=== PATIENT | male | born 1990 | race Caucasian/White ===

== ENCOUNTER 2019-02-18 22:36 | Emergency (ER) | payer OTHER ==
[~2019-02-18] VITALS: Ht 167.6 cm; Wt 90.7 kg
[2019-02-18] MEDS ORDERED: NABUMETONE500 MG PO (23:17)
== END 2019-02-18 23:35 | disposition home or self-care (01) ==
LOC: ER 22:36
DX: M94.0 Chondrocostal junction syndrome [Tietze] (principal)

== ENCOUNTER 2020-03-09 00:44 | Emergency (ER) | payer OTHER ==
[~2020-03-09] VITALS: Ht 167.6 cm; Wt 86.2 kg
[~2020-03-09 00:44] MED LIST: NABUMETONE500 MG PO
[2020-03-09] MEDS ORDERED: KETO10TA2 PO (05:08)
[2020-03-09] MEDS ORDERED: INTESTINEX680 M1 PO (05:08)
[2020-03-09] MEDS ORDERED: DICY20TA PO (05:08)
== END 2020-03-09 05:14 | disposition home or self-care (01) ==
LOC: ER 00:44
DX: K58.9 Irritable bowel syndrome, unspecified (principal); R10.32 Left lower quadrant pain

== ENCOUNTER 2020-05-26 00:40 | Emergency (ER) | payer OTHER ==
[~2020-05-26] VITALS: Ht 167.6 cm; Wt 86.2 kg
[~2020-05-26 00:40] MED LIST changes: +DICY20TA PO; +INTESTINEX680 M1 PO; +KETO10TA2 PO
[2020-05-26] MEDS ORDERED: PANADOL (00:58)
[2020-05-26] MEDS ORDERED: KETO10TA2 PO (02:49)
== END 2020-05-26 02:52 | disposition home or self-care (01) ==
LOC: ER 00:40
DX: R07.89 Other chest pain (principal)

== ENCOUNTER 2020-09-19 13:04 | Emergency (ER) | payer OTHER ==
[~2020-09-19] VITALS: Ht 167.6 cm; Wt 88.5 kg
[~2020-09-19 13:04] MED LIST changes: +PANADOL
== END 2020-09-19 18:23 | disposition home or self-care (01) ==
LOC: ER 13:04
DX: R14.3 Flatulence (principal); R10.2 Pelvic and perineal pain

== ENCOUNTER 2020-11-13 16:20 | Emergency (ER) | payer OTHER ==
[~2020-11-13] VITALS: Ht 167.6 cm; Wt 88.9 kg
[2020-11-13] MEDS ORDERED: IBU800 MG (16:26)
[2020-11-13] MEDS ORDERED: MEDROLPACK PO (19:11)
== END 2020-11-13 19:13 | disposition home or self-care (01) ==
LOC: ER 16:20
DX: M94.0 Chondrocostal junction syndrome [Tietze] (principal)

== ENCOUNTER 2020-11-17 13:18 | Emergency (ER) | payer OTHER ==
[~2020-11-17] VITALS: Ht 167.6 cm; Wt 86.2 kg
[~2020-11-17 13:18] MED LIST changes: +IBU800 MG; +MEDROLPACK PO
[2020-11-17] MEDS ORDERED: NORFLEX100MG PO (17:52)
[2020-11-17] MEDS ORDERED: KETO10TA2 PO (17:52)
== END 2020-11-17 18:50 | disposition home or self-care (01) ==
LOC: ER 13:18
DX: R07.89 Other chest pain (principal); M94.0 Chondrocostal junction syndrome [Tietze]; M62.838 Other muscle spasm

== ENCOUNTER 2020-12-18 22:13 | Emergency (ER) | payer OTHER ==
[~2020-12-18] VITALS: Ht 167.6 cm; Wt 83.0 kg
[~2020-12-18 22:13] MED LIST changes: +NORFLEX100MG PO
[2020-12-19] MEDS ORDERED: PEPCID40 MG PO (04:02)
[2020-12-19] MEDS ORDERED: OMEPRAZOLE MAGN20 MG PO (04:02)
[2020-12-19] MEDS ORDERED: DOLOGESIC 500-1 EACH PO (04:02)
== END 2020-12-19 04:10 ==
LOC: ER 22:13
DX: R07.9 Chest pain, unspecified (principal)

== ENCOUNTER 2021-01-06 12:10 | Emergency (ER) | payer OTHER ==
[~2021-01-06] VITALS: Ht 167.6 cm; Wt 81.6 kg
[~2021-01-06 12:10] MED LIST changes: +DOLOGESIC 500-1 EACH PO; +OMEPRAZOLE MAGN20 MG PO; +PEPCID40 MG PO
== END 2021-01-06 16:39 | disposition home or self-care (01) ==
LOC: ER 12:10
DX: R07.89 Other chest pain (principal); F41.8 Other specified anxiety disorders